=== PATIENT | female | born 1980 | race African-American/Black ===

== ENCOUNTER 2020-12-03 05:34 | Emergency (ER) | payer OTHER ==
[~2020-12-03] VITALS: Ht 165.1 cm; Wt 58.8 kg
--- NOTE | 2020-12-03 05:37 | PHYS DOC ---
General Adult EDM: Chief Complaint: FINGER INJURY HPI: HPI: ".. I was holding a ice bucket.. and pulling the door shut .. it caught my finger ( ring -Rt).. Patient is a 40 year old female who presents with above hx and complaints crush type injury to Lt. 4th finger. Pt. is right-hand dominant. Patient's tetanus was updated in May. No recent travel. No specific ill contacts but is in contact with inmates. 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 Patient denies other health problems. Last had a tetanus update in May. No history immunosuppression. Distal capillary refill refill is equal to other fingers however finger is swollen and has a crease scratch along flexor line of fourth finger. Fifth finger is also slightly swollen. Review of Systems: Review of Systems: Constitutional: Denies fever or chills Eyes: Denies change in visual acuity HENT: Denies nasal congestion or sore throat Respiratory: Denies cough or shortness of breath Cardiovascular: Denies chest pain or edema GI: Denies abdominal pain, nausea, vomiting, bloody stools or diarrhea : Denies dysuria Musculoskeletal: Denies back pain or joint pain. Crush injury to left fourth finger Integument: Denies rash Neurologic: Denies headache, focal weakness or sensory changes Endocrine: Denies polyuria or polydipsia Lymphatic: Denies swollen glands Psychiatric: Denies depression or anxiety Family History: Family History: Noncontributory Current Medications: Current Meds: See nursing for home meds Physical Exam: PE: Constitutional: Well developed, well nourished, no acute distress, non-toxic a ppearance. [] HENT: Normocephalic, atraumatic, bilateral external ears normal, oropharynx moist, no oral exudates, nose normal. [] Eyes: PERRLA, EOMI, conjunctiva normal, no discharge. [] Neck: Normal range of motion, no tenderness, supple, no stridor. [] Cardiovascular:Heart rate regular rhythm, no murmur [] Lungs & Thorax: Bilateral breath sounds clear to auscultation [] Abdomen: Bowel sounds normal, soft, no tenderness, no masses, no pulsatile masses. [] Skin: Warm, dry, no erythema, no rash. [] Back: No tenderness, no CVA tenderness. [] Extremities: No tenderness, no cyanosis, no clubbing, ROM intact, no edema. [] Except findings in left fourth and fifth finger . Neurologic: Alert and oriented X 3, normal motor function, normal sensory function, no focal deficits noted. [] Psychologic: Affect anxious, judgement normal, mood normal. [] EKG: EKG: [] Radiology/Procedures: Radiology/Procedures: [][place] [address] IMAGING REPORT Signed PATIENT: HORACE BECK ACCOUNT: [id number] : 1980 LOCATION: ER AGE: 40 SEX: F EXAM STATUS: REG ER ORD. PHYSICIAN: KATARZYNA AUGUST MD REASON: cell door shut on hand PROCEDURE: HAND LEFT 3V XR HAND_LEFT 3 VIEWS History: Reason: cell door shut on hand / Spl. Instructions: / History: Pain Technique: 3 views left hand Comparison: None. Findings: Normal alignment. No fracture. Soft tissues unremarkable. Impression: 1. No acute osseous abnormality. Electronically signed by: Christian Hilton DO (12/03/2020 6:19 AM) [facility] DICTATED AND SIGNED BY: CHRISTIAN HILTON DO DATE: 12/03/20614 CC: KATARZYNA AUGUST MD; PCP,NO ~MTH0 0 Heart Score: C/O Chest Pain: N/A Risk Factors: Risk Factors: DM, Current or recent (<one month) smoker, HTN, HLP, family history of CAD, obesity. Risk Scores: Score 0 - 3: 2.5% MACE over next 6 weeks - Discharge Home Score 4 - 6: 20.3% MACE over next 6 weeks - Admit for Clinical Observation Score 7 - 10: 72.7% MACE over next 6 weeks - Early Invasive Strategies Course & Med Decision Making: Course & Med Decision Making Pertinent Labs and Imaging studies reviewed. (See chart for details) Keep wound covered with Band-Aid and Polysporin 4 times a day. Follow-up workman comp. Monitor closely for infection. Return if any concerns. Ice and elevation. Zac tape to middle finger. Consider repeat x-ray in 2 weeks to evaluate for callus formation. Impression: 1. Crush injury to left left fourth finger [] Scarlet Disclaimer: Scarlet Disclaimer: This electronic medical record was generated, in whole or in part, using a voice recognition dictation system. Departure Departure: Scripts Bacitracin/Polymyxin B Sulfate (POLYSPORIN OINTMENT) 28.3 Gm Oint...g. 28.3 GM TP four times for wound, #120 MISC Prov: KATARZYNA AUGUST MD 12/03/20 KATARZYNA AUGUST MD Dec 03, 2020 05:37
--- NOTE | 2020-12-03 06:22 | RAD ---
XR HAND_LEFT 3 VIEWS History: Reason: cell door shut on hand / Spl. Instructions: / History: Pain Technique: 3 views left hand Comparison: None. Findings: Normal alignment. No fracture. Soft tissues unremarkable. Impression: 1. No acute osseous abnormality. Electronically signed by: Christian Romero DO (12/03/2020 6:19 AM) [facility]
[2020-12-03] MEDS ORDERED: BACI28.34 TP (06:23)
[2020-12-03] MEDS ORDERED: BACITRACIN ZINC TOPICAL OINT PACKET. TP ONE (06:34)
[2020-12-03 06:40] VITALS: BP 120/68
[2020-12-03] MEDS ORDERED: ACETAMINOPHEN 500 MG TABLET PO ONE (07:30)
[2020-12-03] MEDS ORDERED: MUPIROCIN 2% TOPICAL OINTMENT 22GM TUBE. TP ONE (07:30)
== END 2020-12-03 06:40 | disposition home or self-care (01) ==
LOC: ER 05:34
DX: S67.195A Crushing injury of left ring finger, initial encounter (principal); W23.0XXA Caught, crushed, jammed, or pinched between moving objects, initial encounter; Y93.89 Activity, other specified; Y99.8 Other external cause status; Y92.89 Other specified places as the place of occurrence of the external cause
CPT/HCPCS: 73130; 99283